=== PATIENT | female | born 1940 | race American Indian/Alaskan Native ===

== ENCOUNTER 2019-08-14 23:38 | Emergency (ER) | payer MEDICARE, MEDICAID ==
[2019-08-15] MEDS ORDERED: SODIUM CHLORIDE 0.9% 500 ML 500 ML IV ONE (00:26)
[2019-08-15] MEDS ORDERED: LORazepam 2 MG/ML VIAL IV ONE (00:26)
--- NOTE | 2019-08-15 00:28 | Emergency Department Report ---
ED General Adult HPI - General Chief complaint: High BP Stated complaint: HIGH B/P Time Seen by Provider: 08/15/19 00:12 Source: patient, family, EMS (EMS records not available at time of chart dictation.), RN notes reviewed, old records reviewed Mode of arrival: Wheelchair Limitations: No Limitations - History of Present Illness Initial comments: The patient is a 78-year-old female. This patient is not known to this provider previously. Patient recently admitted to [facility] for right-sided obstructive uropathy, status post cystoscopy, 11 mm dense radio opaque right UPJ stone, status post fragmentation with laser lithotripsy, insertion of indwelling ureteral stent. Hospital stay was compounded by complicated essential hypertension, chronic lower extremity swelling, paranoid schizophrenia, questionable dementia, type 2 diabetes, and lower extremity swelling. Patient arrives with discharge paperwork, indicating normal echocardiogram ejection fraction, and negative ultrasound for lower extremity DVT. Hypertension was difficult to manage, and apparently had hydralazine, switched to Aldactone, continuation with Norvasc. She is currently on a 1014 for paranoid schizophrenia and questionable diagnosis of dementia. Apparently at the receiving psychiatric facility, she was found to have tachycardia, and sent to the emergency room for further evaluation. In the emergency room, the patient denies headache, neck pain, chest pain, abdominal pain, shortness of breath. She has hematuria since her procedure. She is not homicidal or suicidal. She reports that she is not having hallucinations. She is accompanied by her son, who indicates that the patient is an psychiatric facility to clarify question of dementia and/or schizophrenia. As per enclosed paperwork, patient has been paranoid, with persecutory delusions since 2012. It is documented that she is irritable, easily agitated, with poor insight into her illness, delusional and paranoid. Patient will remain on legal hold and transferred to inpatient psych hospital once medically clear for medication management, safety and stabilization. She is presently diagnosed with a delusional disorder. Patient indicates no exacerbating or relieving factors that she is aware of. There is no radiation that she is aware of. -: unknown Quality: other Consistency: other Improves with: other Worsens with: other Associated Symptoms: other - Related Data Home Medications Medication Instructions Recorded Confirmed Last Taken AtorvaSTATin [Lipitor] 10 mg PO QHS 08/15/19 08/15/19 Unknown Docusate Sodium [Colace CAP] 08/15/19 Unknown HYDROcodone/APAP 5-325 [Leeds 08/15/19 Unknown 5-325 mg TAB] Lispro Insulin [HumaLOG] 0 unit SQ 08/15/19 Unknown Losartan [Cozaar] 100 mg PO QDAY 08/15/19 08/15/19 Unknown Metoprolol [Lopressor TAB] 08/15/19 Unknown Mirtazapine [Remeron 15mg TAB] 15 mg PO QHS 08/15/19 08/15/19 Unknown Phenazopyridine [Pyridium] 200 mg PO TID 08/15/19 08/15/19 Unknown Tamsulosin [Flomax] 0.4 mg PO QDAY 08/15/19 08/15/19 Unknown amLODIPine [Norvasc] 10 mg PO DAILY 08/15/19 08/15/19 Unknown cloNIDine [Catapres] 0.1 mg PO 08/15/19 Unknown hydrALAZINE [Apresoline] 25 mg PO Q8HR 08/15/19 08/15/19 Unknown risperiDONE [RisperDAL] 2 mg PO 08/15/19 Unknown risperiDONE [risperiDONE ODT] 1 mg PO 08/15/19 Unknown Allergies Allergy/AdvReac Type Severity Reaction Status Date / Time codeine AdvReac Nausea Verified 08/15/19 00:49 ED Review of Systems ROS: Stated complaint: HIGH B/P Other details as noted in HPI Constitutional: denies: fever Eyes: denies: eye discharge ENT: denies: congestion Cardiovascular: palpitations. denies: chest pain Gastrointestinal: denies: abdominal pain, nausea, vomiting Genitourinary: hematuria Musculoskeletal: denies: back pain Skin: denies: lesions Neurological: denies: weakness Psychiatric: denies: homicidal thoughts, suicidal thoughts Hematological/Lymphatic: denies: easy bleeding ED Past Medical Hx - Medications Home Medications: Home Medications Medication Instructions Recorded Confirmed Last Taken Type AtorvaSTATin [Lipitor] 10 mg PO QHS 08/15/19 08/15/19 Unknown History Docusate Sodium [Colace CAP] 08/15/19 Unknown History HYDROcodone/APAP 5-325 [Leeds 08/15/19 Unknown History 5-325 mg TAB] Lispro Insulin [HumaLOG] 0 unit SQ 08/15/19 Unknown History Losartan [Cozaar] 100 mg PO QDAY 08/15/19 08/15/19 Unknown History Metoprolol [Lopressor TAB] 08/15/19 Unknown History Mirtazapine [Remeron 15mg TAB] 15 mg PO QHS 08/15/19 08/15/19 Unknown History Phenazopyridine [Pyridium] 200 mg PO TID 08/15/19 08/15/19 Unknown History Tamsulosin [Flomax] 0.4 mg PO QDAY 08/15/19 08/15/19 Unknown History amLODIPine [Norvasc] 10 mg PO DAILY 08/15/19 08/15/19 Unknown History cloNIDine [Catapres] 0.1 mg PO 08/15/19 Unknown History hydrALAZINE [Apresoline] 25 mg PO Q8HR 08/15/19 08/15/19 Unknown History risperiDONE [RisperDAL] 2 mg PO 08/15/19 Unknown History risperiDONE [risperiDONE ODT] 1 mg PO 08/15/19 Unknown History ED Physical Exam - General Limitations: No Limitations General appearance: alert, in no apparent distress - Head Head exam: Present: atraumatic, normocephalic - Eye Eye exam: Present: normal appearance, EOMI. Absent: nystagmus - ENT ENT exam: Present: normal exam, normal orophraynx, mucous membranes moist, normal external ear exam - Neck Neck exam: Present: normal inspection, full ROM. Absent: tenderness, meningismus - Respiratory Respiratory exam: Present: normal lung sounds bilaterally. Absent: respiratory distress - Cardiovascular Cardiovascular Exam: Present: normal rhythm, tachycardia, normal heart sounds. Absent: systolic murmur, diastolic murmur, rubs, gallop - GI/Abdominal GI/Abdominal exam: Present: soft. Absent: distended, tenderness, guarding, rebound, rigid, pulsatile mass - Extremities Exam Extremities exam: Present: normal inspection, full ROM, pedal edema, other (2+ pulses noted in the bilateral upper and lower extremities. The pelvis is sta ble. There is no long bony tenderness. The muscular compartments are soft. There is no redness, pus, streaking or erythema.). Absent: calf tenderness - Back Exam Back exam: Present: normal inspection. Absent: tenderness, CVA tenderness (R), CVA tenderness (L), paraspinal tenderness, vertebral tenderness - Neurological Exam Neurological exam: Present: alert, oriented X3, other (there is no facial droop. The tongue is midline. Extraocular movements are intact bilaterally. Speaking in full sentences. Hearing is grossly intact. 5 out of 5 strength bilateral upper and lower extremities. Sensation is intact to light touch bilateral upper and lower extremities.). Absent: motor sensory deficit - Psychiatric Psychiatric exam: Present: normal affect, normal mood. Absent: homicidal ideation, suicidal ideation - Skin Skin exam: Present: warm, dry, intact, normal color. Absent: rash ED Course Vital Signs 08/15/19 08/15/19 08/15/19 00:34 01:14 01:23 Temperature 98.1 F 98.1 F Pulse Rate 113 H 117 H Respiratory 18 Rate Blood Pressure 153/85 Blood Pressure 235/85 [Left] O2 Sat by Pulse 98 Oximetry 08/15/19 08/15/19 01:53 02:26 Temperature Pulse Rate 104 H 97 H Respiratory 18 Rate Blood Pressure Blood Pressure 171/79 156/78 [Left] O2 Sat by Pulse 98 Oximetry - Reevaluation(s) Reevaluation #1: 08/15/19 00:48 Differential diagnosis, including but not limited to: Anxiety, dehydration, pneumonia, pulmonary embolism, thyroid derangement, postsurgical complication, i nappropriate sinus tachycardia Assessment and plan: 78-year-old female who was sent to the emergency room from the psychiatric facility today, after being discharged from another hospital, [facility] on Aug 14 2019, for evaluation for persistent and asymptomatic tachycardia. The patient is afebrile with reassuring vital signs. She appears to be in a sinus rhythm. She is alert and oriented, pleasant, calm and cooperative. She endorses no headache, neck pain, chest pain, abdominal pa in or shortness of breath. We will obtain screening laboratory studies, x-ray of the chest, urinalysis, noncontrast CT scan of the abdomen and pelvis. She was discharged to the psychiatric facility, with antibiotics and pain medicines. We will reassess after her data points have resulted Reevaluation #2: 08/15/19 01:51 Heart rate down to 101 bpm when she is calm and relaxed. Blood pressure 170/75. Initial blood pressure reading of 230s reviewed and appreciated. This is most likely a blood pressure cuff error. Patient resting comfortably talking to her family and no acute distress. Reevaluation #3: 08/15/19 02:16 CT scan abdomen and pelvis shows expected findings. D-dimer negative. Heart rate now 99-105 bpm. Resting comfortably, and in no acute distress. Remainder of laboratory studies pending. Reevaluation #4: 08/15/19 02:44 Patient continues to rest comfortably, and in no acute distress. Heart rate in the 90s. X-ray of the chest unremarkable. Discussed laboratory studies, CT scan findings, results with patient and family. ED Medical Decision Making - Lab Data Result diagrams: 08/15/19 01:11 08/15/19 01:11 Vital Signs 08/15/19 00:34 Temperature 98.1 F Pulse Rate 113 H Respiratory 18 Rate Blood Pressure 153/85 O2 Sat by Pulse 98 Oximetry - EKG Data -: EKG Interpreted by Me EKG shows normal: sinus rhythm Rate: tachycardia - EKG Data When compared to previous EKG there are: previous EKG unavailable 08/15/19 01:51 The EKG shows a sinus tachycardia, there is a normal axis, QTC is 468 ms, there are PVCs, DC intervals prolonged, the EKG is abnormal has motion artifact, it is not consistent with ST elevation myocardial infarction. - Radiology Data Radiology results: pending, report reviewed, image reviewed interpreted by me: X-ray of the chest, interpreted by myself, no acute disease. Print Report Referring Physician: SILVIO BROWN Patient Name: JESSICA GRAVES Date of : 1940 Sex: Female Report Date: 2019-08-15 Report Status: Finalized Findings [address] [address] Cat Scan Report Signed Patient: JESSICA GRAVES MR#: [id number] : 1940 Acct:[id number] Age/Sex: 78 / F ADM Date: 08/14/19 Loc: ED Attending Dr: Ordering Physician: SILVIO BROWN MD Date of Service: 08/15/19 Procedure(s): CT abdomen pelvis wo con Accession Number(s): [id number] cc: SILVIO BROWN MD CT ABDOMEN AND PELVIS WITHOUT CONTRAST INDICATION: Hematuria. History of right-sided ureteral stent placement TECHNICAL: Multiple axial CT images of the abdomen and pelvis were acquired without intravenous contrast. Sagittal and coronal reformats were obtained. All CTs at this facility utilize dose reduction techniques including automated exposure control, iterative reconstruction and weight based dosing when appropriate to reduce patient radiation dose to as low as reasonable achievable. COMPARISON: No prior studies are available for comparison. FINDINGS: Limited imaging of the bilateral lung bases demonstrates no acute abnormality. Abdomen: Within the limitations of today's noncontrast technique, the liver, spleen and pancreas show no evidence of acute abnormality. Hyperdense sludge versus small stones are noted within the gallbladder. There is mild right-sided hydronephrosis and perinephric stranding. A right double-J ureteral stent catheter is present. There are multiple nonobstructing stones within the left kidney, the largest of which measures 1.8 cm. There is scattered atherosclerotic calcification of the abdominal aorta. Pelvis: The right-sided stent catheter terminates within the right ureterovesicular junction the urinary bladder contains one and possibly 2 past ureteral stones. No free fluid is seen within the pelvis. The uterus is enlarged and contains multiple calcified fibroids. Bones and Soft Tissues: Evaluation of bony structures demonstrates no evidence of destructive bony lesion. Evaluation of soft tissue structures demonstrates a lipoma within the left gluteal musculature. IMPRESSION: 1. Mild right-sided hydronephrosis with a right-sided double-J ureteral stent catheter. The inferior and of the catheter terminates in the right ureterovesicular junction. 2. Nonobstructing left intrarenal stones. Signer Name: Dilcia Jeronimo MD Signed: 08/15/2019 2:02 AM Workstation Name: [id number] Transcribed By: EB Dictated By: Dilcia Jeronimo MD Electronically Authenticated By: Dilcia Jeronimo MD Signed Date/Time: 08/15/19 0202 Critical care attestation.: If time is entered above; I have spent that time in minutes in the direct care of this critically ill patient, excluding procedure time. ED Disposition Clinical Impression: Medical clearance for psychiatric admission, History of tachycardia, History of kidney stones Disposition: [id number]/TX-65 PSY HOSP/PSY UNIT Is pt being admited?: No Does the pt Need Aspirin: No Condition: Stable Additional Instructions: Cultures were sent today, and results will be available in the next 3-5 days. Have your primary care doctor contact the medical records department to obtain culture results. Please continue current outpatient medications. Follow up with the medical doctor within the next 7-10 days. Return to the emergency room right away with new, worsening or different symptoms, or symptoms not present on the initial emergency room evaluation. At this point in time, patient does not appear to have an immediate medical contraindication to psychiatric admission, evaluation, consultation and placement. Referrals: PRIMARY CARE, [Primary Care Provider] - 3-5 Days
[2019-08-15 01:41] LABS: Hematocrit 34.3 % (30.3-42.9); Hemoglobin 11.2 gm/dl (10.1-14.3); Mean Corpuscular HGB Conc 33 % (30-34); Mean Corpuscular Volume 81 fl (79-97); Red Blood Count 4.21 M/mm3 (3.65-5.03)
[2019-08-15 01:42] LABS: Basophils # (Auto) 0.1 K/mm3 (0.0-0.1); Basophils % (Auto) 1.1 % (0.0-1.8); Eosinophils % (Auto) 0.2 % (0.0-4.3); Lymphocytes # (Auto) 0.8 K/mm3 (1.2-5.4); Lymphocytes % (Auto) 11.3 % (13.4-35.0); Mean Platelet Volume 8.7 fl (6-12); Monocytes # (Auto) 0.4 K/mm3 (0.0-0.8); Monocytes % (Auto) 5.2 % (0.0-7.3); Platelet Count 261 K/mm3 (140-440); Red Cell Distribution Width 15.1 % (13.2-15.2)
--- NOTE | 2019-08-15 02:06 | Cat Scan Report ---
CT ABDOMEN AND PELVIS WITHOUT CONTRAST INDICATION: Hematuria. History of right-sided ureteral stent placement TECHNICAL: Multiple axial CT images of the abdomen and pelvis were acquired without intravenous contr ast. Sagittal and coronal reformats were obtained. All CTs at this facility utilize dose reduction techniques including automated exposure control, iterative reconstruction and weight based dosing whe n appropriate to reduce patient radiation dose to as low as reasonable achievable. COMPARISON: No prior studies are available for comparison. FINDINGS: Limited imaging of the bilateral lung bases demonstrates no acute abnormality. Abdomen: Within the limitations of today's noncontrast technique, the liver, spleen and pancreas show no evidence of acute abnormality. Hyperdense sludge versus small stones are noted within the gallbla dder. There is mild right-sided hydronephrosis and perinephric stranding. A right double-J ureteral stent c atheter is present. There are multiple nonobstructing stones within the left kidney, the largest of w hich measures 1.8 cm. There is scattered atherosclerotic calcification of the abdominal aorta. Pelvis: The right-sided stent catheter terminates within the right ureterovesicular junction the urin justin bladder contains one and possibly 2 past ureteral stones. No free fluid is seen within the pelvis . The uterus is enlarged and contains multiple calcified fibroids. Bones and Soft Tissues: Evaluation of bony structures demonstrates no evidence of destructive bony l esion. Evaluation of soft tissue structures demonstrates a lipoma within the left gluteal musculature . IMPRESSION: 1. Mild right-sided hydronephrosis with a right-sided double-J ureteral stent catheter. The inferior and of the catheter terminates in the right ureterovesicular junction. 2. Nonobstructing left intrarenal stones. Signer Name: Dilcia Jeronimo MD Signed: 08/15/2019 2:02 AM Workstation Name: [id number]
[2019-08-15 02:07] LABS: INR 1.06 (0.87-1.13)
[2019-08-15] MEDS ORDERED: LORazepam 2 MG/ML VIAL IV STA (02:15)
[2019-08-15 02:18] LABS: BUN/Creatinine Ratio 21; Blood Urea Nitrogen 15 mg/dL (7-17)
[2019-08-15 02:19] LABS: Alanine Aminotransferase 26 units/L (7-56); Albumin 3.6 g/dL (3.9-5); Calcium 9.1 mg/dL (8.4-10.2); Hemolysis Index 9
--- NOTE | 2019-08-15 02:24 | XRay Report ---
CHEST 1 VIEW, 08/15/2019 12:56 AM CLINICAL INFORMATION/INDICATION: Chest pain. Tachycardia. COMPARISON: None FINDINGS: SUPPORT DEVICES: None. HEART: Cardiac silhouette is normal in size. LUNGS/PLEURA: The lungs are clear of focal airspace disease or significant pleural effusion. ADDITIONAL FINDINGS: No additional acute findings. IMPRESSION: 1. No evidence of acute cardiopulmonary process. Signer Name: Dilcia Jeronimo MD Signed: 08/15/2019 2:19 AM Workstation Name: [id number]
[2019-08-15 02:48] LABS: Color,Urine Red (Yellow)
[2019-08-15 02:49] LABS: Bilirubin,Urine Negative (Negative); Blood,Urine Large (Negative); Ictotest,Urine Negative (Negative); Urobilinogen,Urine < 2.0 mg/dL (<2.0)
[2019-08-15 02:50] LABS: Mucus,Urine Few /HPF; RBC,Urine > 182.0 /HPF (0.0-6.0)
[2019-08-15 04:25] VITALS: BP 121/51
== END 2019-08-15 04:27 ==
LOC: ED 23:38
DX: I10 Essential (primary) hypertension (principal); R00.0 Tachycardia, unspecified; Z79.899 Other long term (current) drug therapy; Z88.8 Allergy status to other drugs, medicaments and biological substances; Z87.442 Personal history of urinary calculi
CPT/HCPCS: 36415; 71045; 74176; 80053; 81001; 82550; 83735; 84439; 84443; 84484; 85025; 85379; 85610; 87086; 93005; 93010; 96374; 96376; 99285; J2060; J7040